=== PATIENT | male | born 1955 | race Two or more races ===

== ENCOUNTER 2022-06-20 13:11 | Inpatient (IN) | payer BC, MEDICARE ==
[~2022-06-20] VITALS: Ht 170.2 cm; Wt 90.1 kg
[2022-06-20 13:47] LABS: Basophils # (auto) 0.1 10 ^3/uL (0-0.2); Basophils % (auto) 0.5 % (0.0-2.0); Eosinophils # (auto) 0 10 ^3/uL (0-0.8); Eosinophils % (auto) 0.1 % (0.0-7.0); Hematocrit 49.4 % (41.0-53.0); Hemoglobin 16.9 g/dL (13.5-17.5); Lymphocytes # (auto) 1.6 10 ^3/uL (0.4-5.4); Lymphocytes % (auto) 8.5 % (10.0-50.0); Mean Corpuscular Hemoglobin 31.1 pg (28.0-32.0); Mean Corpuscular Hgb Conc. 34.3 g/dL (32.0-36.0); Mean Corpuscular Volume 90.8 fL (80.0-100.0); Monocytes # (auto) 1.1 10 ^3/uL (0-1.3); Neutrophils # (auto) 15.6 10 ^3/uL (1.6-8.6); Neutrophils % (auto) 84.9 % (37.0-80.0); Nucleated Red Blood Cells % 0.2 %; Red Blood Cells 5.43 10^6/uL (4.5-5.90); Red Cell Distribution Width 13.5 % (11.8-14.3); White Blood Cell 18.4 10^3/uL (4.4-10.8)
[2022-06-20 14:10] LABS: Lactic Acid w/Reflex 2.3 mmol/L (0.4-2.0)
[2022-06-20 14:11] LABS: Albumin 4.4 g/dL (3.4-5.0); Calcium 9.6 mg/dL (8.5-10.1); Potassium 3.7 mmol/L (3.5-5.1)
[2022-06-20] MEDS ORDERED: PIPERACILLIN-TAZOB 3.375GM 100 ML IV ONE (14:15)
[2022-06-20 14:16] LABS: Bilirubin, Total 1.8 mg/dL (0.2-1.0); Total Protein 7.6 g/dL (6.4-8.2)
[2022-06-20 14:18] LABS: INR 1.06 (0.9-1.15); Partial Thromboplastin Time 27.6 sec (24.6-33.4)
[2022-06-20] MEDS ORDERED: LORazepam 0.5 MG TAB PO PRN (14:45)
[2022-06-20] MEDS ORDERED: ONDANSETRON HCL 4 MG/2 ML VIAL IV PRN (14:45)
[2022-06-20] MEDS ORDERED: DOCUSATE SOD 100 MG CAP PO PRN (14:45)
[2022-06-20] MEDS: MORPHINE SULFATE INJ 2 MG/ml SYRG IV PRN (16:23)
[2022-06-20] MEDS: SODIUM CHLORIDE 0.9% 1,000 ML IV SCH (16:23)
[2022-06-20] MEDS: PIPERACILLIN-TAZOB 3.375GM 100 ML IV SCH (18:17)
[2022-06-20] MEDS: HYDROmorphone HCL 2 MG/ML VL/or syr IV PRN ×2 (18:42→21:49)
[2022-06-20] MEDS: HYDROcodone-ACET 5/325MG TAB PO PRN (20:25)
[2022-06-20 22:35] VITALS: BP 109/70
[2022-06-21] MEDS: PIPERACILLIN-TAZOB 3.375GM 100 ML IV SCH ×4 (00:52→17:50)
[2022-06-21] MEDS: HYDROmorphone HCL 2 MG/ML VL/or syr IV PRN ×2 (03:57→16:49)
[2022-06-21] MEDS: SODIUM CHLORIDE 0.9% 1,000 ML IV SCH ×2 (04:05→17:50)
[2022-06-21 05:00] VITALS: BP 106/78
[2022-06-21 06:48] LABS: Basophils # (auto) 0 10 ^3/uL (0-0.2); Basophils % (auto) 0.3 % (0.0-2.0); Eosinophils # (auto) 0 10 ^3/uL (0-0.8); Eosinophils % (auto) 0.1 % (0.0-7.0); Hemoglobin 16.2 g/dL (13.5-17.5); Lymphocytes # (auto) 1.5 10 ^3/uL (0.4-5.4); Lymphocytes % (auto) 8.8 % (10.0-50.0); Mean Corpuscular Hemoglobin 32.4 pg (28.0-32.0); Mean Corpuscular Hgb Conc. 34.5 g/dL (32.0-36.0); Mean Corpuscular Volume 93.9 fL (80.0-100.0); Monocytes % (auto) 5.9 % (0.0-12.0); Neutrophils # (auto) 14.6 10 ^3/uL (1.6-8.6); Neutrophils % (auto) 84.9 % (37.0-80.0); Nucleated Red Blood Cells % 0.1 %; Red Blood Cells 5.01 10^6/uL (4.5-5.90); White Blood Cell 17.2 10^3/uL (4.4-10.8)
[2022-06-21 07:06] LABS: BUN/Creatinine Ratio 21.1; Calcium 8.7 mg/dL (8.5-10.1)
[2022-06-21 07:08] LABS: Potassium 4.3 mmol/L (3.5-5.1)
[2022-06-21] MEDS ORDERED: LIDOCAINE W/ EPINEPHRINE 2% INJ 20ML VIAL ONE (07:16)
[2022-06-21] MEDS ORDERED: fentaNYL CITRATE 100 MCG/2 ML VL ONE (07:20)
[2022-06-21] MEDS ORDERED: LIDOCAINE HCL 100 MG/5ML (2%) SYRG INJ IV ONE (07:21)
[2022-06-21] MEDS ORDERED: SUGAMMADEX 200mg/2ml Vial (100MG/ML) IV ONE (07:21)
[2022-06-21] MEDS ORDERED: KETOROLAC TROMETH 30 MG/ML 1ML VIAL ONE (07:21)
[2022-06-21] MEDS ORDERED: GLYCOPYRROLATE 0.2 MG/ML 1ML VIAL ONE (07:21)
[2022-06-21] MEDS ORDERED: ROCURONIUM 10MG/ML 10ML VIAL IV ONE (07:21)
[2022-06-21] MEDS ORDERED: DexAMETHasone SOD PHOS 10MG/1ML VIAL INJ ONE (07:21)
[2022-06-21] MEDS ORDERED: PROPOFOL 10 MG/ML 20 ML IV ONE (07:21)
[2022-06-21] MEDS ORDERED: ONDANSETRON HCL 4 MG/2 ML VIAL ONE (07:21)
[2022-06-21] MEDS ORDERED: LIDOCAINE HCL (LOCAL ANESTH.) 0.5 % 50ML MDV IJ ONE (08:04)
[2022-06-21 09:00] VITALS: BP_SYST 102; BP_SYST 125; BP_DIAS 44; BP_DIAS 72
[2022-06-21] MEDS ORDERED: ONDANSETRON HCL 4 MG/2 ML VIAL IV PRN (10:15)
[2022-06-21] MEDS ORDERED: ePHEDrine SULFATE 50 MG/ML AMP IV PRN (10:15)
[2022-06-21] MEDS ORDERED: fentaNYL CITRATE 100 MCG/2 ML VL IV PRN (10:15)
[2022-06-21] MEDS ORDERED: FLUMAZENIL 0.1 MG/ML INJ 10ML MDV IV PRN (10:15)
[2022-06-21] MEDS ORDERED: LABETALOL HCL 5 MG/ML 4ML SYRINGE IV PRN (10:15)
[2022-06-21] MEDS ORDERED: hydrALAZINE HCL 20 MG/ML VL IV PRN (10:15)
[2022-06-21] MEDS ORDERED: NALOXONE HCL 0.4 MG/ML VIAL IV PRN (10:15)
[2022-06-21] MEDS ORDERED: HYDROmorphone HCL 2 MG/ML VL/or syr IV PRN (10:15)
[2022-06-21 13:00] VITALS: BP 115/64
[2022-06-21] MEDS: MORPHINE SULFATE INJ 2 MG/ml SYRG IV PRN (15:15)
[2022-06-21 17:00] VITALS: BP 143/63
[2022-06-21 22:00] VITALS: BP 108/68
[2022-06-21] MEDS: HYDROcodone-ACET 5/325MG TAB PO PRN (23:46)
[2022-06-22 05:00] VITALS: BP 103/65
[2022-06-22] MEDS: PIPERACILLIN-TAZOB 3.375GM 100 ML IV SCH ×5 (05:47→17:50)
[2022-06-22] MEDS: SODIUM CHLORIDE 0.9% 1,000 ML IV SCH (06:36)
[2022-06-22 08:00] VITALS: BP 124/66
[2022-06-22 08:30] VITALS: BP 124/66
[2022-06-22] MEDS: ACETAMINOPHEN 325 MG TAB PO PRN ×2 (11:46→18:42)
[2022-06-22 12:00] VITALS: BP 112/76
[2022-06-22 15:13] LABS: Basophils # (auto) 0 10 ^3/uL (0-0.2); Eosinophils # (auto) 0 10 ^3/uL (0-0.8); Hematocrit 41.3 % (41.0-53.0); Hemoglobin 14.2 g/dL (13.5-17.5); Lymphocytes # (auto) 1.1 10 ^3/uL (0.4-5.4); Mean Corpuscular Hemoglobin 32.3 pg (28.0-32.0); Mean Corpuscular Hgb Conc. 34.3 g/dL (32.0-36.0); Mean Corpuscular Volume 94.1 fL (80.0-100.0); Monocytes # (auto) 0.9 10 ^3/uL (0-1.3); Monocytes % (auto) 7.2 % (0.0-12.0); Neutrophils # (auto) 10.6 10 ^3/uL (1.6-8.6); Neutrophils % (auto) 83.8 % (37.0-80.0); Red Blood Cells 4.39 10^6/uL (4.5-5.90); Red Cell Distribution Width 13.7 % (11.8-14.3); White Blood Cell 12.6 10^3/uL (4.4-10.8)
[2022-06-22] MEDS ORDERED: TEMAZEPAM 15 MG CAP PO PRN (15:15)
[2022-06-22 15:17] LABS: Potassium 3.6 mmol/L (3.5-5.1)
[2022-06-22 15:19] LABS: BUN/Creatinine Ratio 25.3
[2022-06-22 16:00] VITALS: BP_SYST 108; BP_SYST 118; BP_DIAS 64; BP_DIAS 65
[2022-06-22 21:43] VITALS: BP 105/67
[2022-06-23] MEDS: PIPERACILLIN-TAZOB 3.375GM 100 ML IV SCH ×3 (00:05→12:05)
[2022-06-23 04:45] VITALS: BP 124/78
[2022-06-23 08:00] VITALS: BP 118/72
[2022-06-23 08:30] VITALS: BP 118/72
[2022-06-23 10:48] LABS: Basophils # (auto) 0 10 ^3/uL (0-0.2); Basophils % (auto) 0.4 % (0.0-2.0); Eosinophils # (auto) 0 10 ^3/uL (0-0.8); Eosinophils % (auto) 0.2 % (0.0-7.0); Hemoglobin 15.4 g/dL (13.5-17.5); Lymphocytes # (auto) 0.9 10 ^3/uL (0.4-5.4); Lymphocytes % (auto) 12.8 % (10.0-50.0); Mean Corpuscular Hemoglobin 31.7 pg (28.0-32.0); Mean Corpuscular Hgb Conc. 34.1 g/dL (32.0-36.0); Mean Corpuscular Volume 92.9 fL (80.0-100.0); Monocytes # (auto) 0.6 10 ^3/uL (0-1.3); Monocytes % (auto) 9.1 % (0.0-12.0); Neutrophils # (auto) 5.3 10 ^3/uL (1.6-8.6); Neutrophils % (auto) 77.5 % (37.0-80.0); Nucleated Red Blood Cells % 0.1 %; Red Blood Cells 4.84 10^6/uL (4.5-5.90); Red Cell Distribution Width 13.3 % (11.8-14.3); White Blood Cell 6.9 10^3/uL (4.4-10.8)
[2022-06-23 13:00] VITALS: BP 125/74
[2022-06-23 13:10] VITALS: BP 125/74
== END 2022-06-23 14:39 | disposition home or self-care (01) | DRG 337 ==
LOC: ER 13:11 → OVERFLOW 14:53 → WEST WING 21:17
PROVIDERS: ADMIT Hospitalist; ATTEND Internal Medicine
PROC: 0DNW4ZZ Release Peritoneum, Percutaneous Endoscopic Approach (ICD-10-PCS; 2022-06-21)
PROC: 0DTJ4ZZ Resection of Appendix, Percutaneous Endoscopic Approach (ICD-10-PCS; principal; 2022-06-21 08:35)
DX: K35.33 Acute appendicitis with perforation, localized peritonitis, and gangrene, with abscess (principal); Z20.822 Contact with and (suspected) exposure to COVID-19
CPT/HCPCS: 36415; 71045; 74176; 80048; 80053; 83605; 83690; 83880; 84132; 84484; 85025; 85610; 85730; 87426; 93005; 96365; 96375; G0378; J1100; J1885; J2405; J2543; J2704